=== PATIENT | male | born 1985 | race Caucasian/White ===

== ENCOUNTER 2022-08-02 05:24 | Emergency (ER) | payer OTHER ==
[2022-08-02] MEDS ORDERED: Cetirizine 10 MG Tab PO ONE (05:59)
== END 2022-08-02 06:22 | disposition home or self-care (01) ==
LOC: JD.ED 05:24
DX: T78.40XA Allergy, unspecified, initial encounter (principal); Z86.16 Personal history of COVID-19
CPT/HCPCS: 99282; 99283